=== PATIENT | female | born 1995 | race Caucasian/White ===

== ENCOUNTER → 2018-11-11 11:07 | Outpatient (CLI) | payer BC, MEDICAID, SELFPAY ==
[2018-11-11 10:55] VITALS: BMI 29.2
[2018-11-11 11:39] LABS: Absolute Lymphocyte Count 3.04 X10^3/ul (0.83-4.51); Absolute Neutrophil Count 5.8 X10^3/uL (2.0-7.7); Basophil# 0.04 X10^3/uL; Basophil% 0.4 % (0-1); Eosinophil# 0.11 X10^3/uL; Eosinophils% 1.1 % (0-5); Hematocrit 40.8 % (37-47); Hemoglobin 13.4 g/dl (12.0-15.0); Lymphocyte # 3.04 X10^3/ul (4.0); Lymphocyte % 31.1 % (19-41); Mean Corp Hgb Conc 32.8 g/gl (32-36); Mean Corpuscular Hgb 27.4 pg (27.0-32.0); Mean Corpuscular Volume 83.4 fL (81-99); Mean Platelet Vol. 10.2 fl (6.2-12.0); Monocyte# 0.82 X10^3/uL; Monocyte% 8.4 % (0-10); Neutrophil # 5.75 X10^3/uL (2.7-7.7); Neutrophil % 58.8 % (47-70); POSITIVE COUNT NO; POSITIVE DIFFERENTIAL NO; POSITIVE MORPHOLOGY NO; Platelet Count 360 K/mm3 (150-450); RBC Distribution Width CV 13.6 % (11.6-14.6); RBC Distribution Width SD 41.6 fl (35.1-43.9); Red Blood Count 4.89 M/mm3 (4.2-5.4); White Blood Count 9.8 K/mm3 (4.4-11.0)
[2018-11-11 12:05] LABS: Prolactin 6.6 ng/mL; Thyroid Stim Hormone (TSH) 1.94 uIU/mL (0.358-3.74)
[2018-11-12 20:06] LABS: DHEA Sulfate 420.3 ug/dL (110.0-431.7)
[2018-11-13 11:23] LABS: Testosterone Free 3.9 pg/mL (0.0-4.2)
== END ==
PROVIDERS: Referring Provider Nurse Practitioner Women's Health; Visit Provider Nurse Practitioner Women's Health
DX: N92.6 Irregular menstruation, unspecified (principal)
CPT/HCPCS: 36415; 82627; 84146; 84402; 84443; 85025; 82626

== ENCOUNTER 2021-06-20 11:22 | Outpatient (CLI) | payer MEDICAID, SELFPAY ==
[2021-06-21 21:07] LABS: Chlamydia By Nucleic Acid AMP Negative (Negative)
[2021-06-21 21:15] LABS: Gonococcus By Nucleic Acid AMP Negative (Negative)
[2021-06-23 14:35] LABS: HPV Reflexed? NOT INDICATED
== END 2021-06-20 23:59 | disposition short-term general hospital (02) ==
LOC: LABSPEC 11:23
PROVIDERS: Referring Provider Nurse Practitioner Women's Health; Visit Provider Nurse Practitioner Women's Health
DX: Z12.4 Encounter for screening for malignant neoplasm of cervix (principal); Z11.3 Encounter for screening for infections with a predominantly sexual mode of transmission
CPT/HCPCS: 87491; 87591; 88175; G0145

== ENCOUNTER 2021-07-05 14:08 | Outpatient (CLI) | payer MEDICAID, SELFPAY ==
--- NOTE | 2021-07-05 14:15 | US_ITS ---
STUDY: ULTRASOUND OF THE FEMALE PELVIS - COMPLETE REASON FOR EXAM: Female, 26 years old. Abnormal uterine bleeding -- wet read LMP: 06/21/2021. TECHNIQUE: Transabdominal and Transvaginal TECHNICAL QUALITY: Adequate. COMPARISON: None. FINDINGS: The uterus is anteverted and is in a midline position. The uterus measures 9.6 cm x 5.8 cm x 4.2 cm. Normal uterine cervix. The endometrium measures 3 mm in thickness, and is hyperechoic. A small amount of fluid is seen within the endometrium. There is no demonstrated endometrial mass. The endometrium is hyperemic. There is no demonstrated myometrial mass. I.U.D. - The patient does not have an I.U.D. The right ovary is visualized. The right ovary measures 2.9 cm x 2.5 cm x 2.4 cm. There is no right ovarian cyst or ovarian mass. There is no visualized right adnexal mass or complex lesion. There is normal arterial and normal venous vascularity. The left ovary is visualized. The left ovary measures 2.6 cm x 2.1 cm x 2.3 cm. There is no left ovarian cyst or ovarian mass. There is no visualized left adnexal mass or complex lesion. There is normal arterial and normal venous vascularity. There is no fluid in the cul-de-sac. The pre void volume of the bladder was 327 ml. US/Pelvic (Non ) IMPRESSION: Small amount of fluid is seen within the endometrium. The endometrium is hyperemic. Electronically Signed: Samir Chan MD at 15:29 EST ,
--- NOTE | 2021-07-05 14:15 | US_ITS ---
STUDY: ULTRASOUND OF THE FEMALE PELVIS - COMPLETE REASON FOR EXAM: Female, 26 years old. Abnormal uterine bleeding -- wet read LMP: 06/21/2021. TECHNIQUE: Transabdominal and Transvaginal TECHNICAL QUALITY: Adequate. COMPARISON: None. FINDINGS: The uterus is anteverted and is in a midline position. The uterus measures 9.6 cm x 5.8 cm x 4.2 cm. Normal uterine cervix. The endometrium measures 3 mm in thickness, and is hyperechoic. A small amount of fluid is seen within the endometrium. There is no demonstrated endometrial mass. The endometrium is hyperemic. There is no demonstrated myometrial mass. I.U.D. - The patient does not have an I.U.D. The right ovary is visualized. The right ovary measures 2.9 cm x 2.5 cm x 2.4 cm. There is no right ovarian cyst or ovarian mass. There is no visualized right adnexal mass or complex lesion. There is normal arterial and normal venous vascularity. The left ovary is visualized. The left ovary measures 2.6 cm x 2.1 cm x 2.3 cm. There is no left ovarian cyst or ovarian mass. There is no visualized left adnexal mass or complex lesion. There is normal arterial and normal venous vascularity. There is no fluid in the cul-de-sac. The pre void volume of the bladder was 327 ml. US/Transvaginal Non- IMPRESSION: Small amount of fluid is seen within the endometrium. The endometrium is hyperemic. Electronically Signed: Samir Chan MD at 15:29 EST ,
== END 2021-07-05 23:59 | disposition home or self-care (01) ==
LOC: US 14:13
PROVIDERS: Referring Provider Nurse Practitioner Women's Health; Visit Provider Nurse Practitioner Women's Health
DX: N92.1 Excessive and frequent menstruation with irregular cycle (principal)
CPT/HCPCS: 76830; 76856

== ENCOUNTER → 2022-02-13 | Outpatient (CLI) | payer MEDICAID, SELFPAY ==
[2022-02-13 14:22] LABS: Absolute Lymphocyte Count 2.53 X10^3/uL (0.83-4.51); Absolute Neutrophil Count 5.7 X10^3/uL (2.0-7.7); Basophil# 0.03 X10^3/uL; Basophil% 0.3 % (0-1); Eosinophil# 0.09 X10^3/uL; Hematocrit 40.6 % (37-47); Hemoglobin 13.5 g/dL (12.0-15.0); Lymphocyte # 2.53 X10^3/ul (0.83-4.51); Mean Corp Hgb Conc 33.3 g/dL (32-36); Mean Corpuscular Hgb 29.2 pg (27.0-32.0); Mean Corpuscular Volume 87.9 fL (81-99); Monocyte# 0.71 X10^3/uL; Monocyte% 7.8 % (0-10); NRBC Flagged by Analyzer 0 % (0-5); Neutrophil # 5.65 X10^3/uL (2.7-7.7); Neutrophil % 62.5 % (47-70); Platelet Count 314 K/mm3 (150-450); RBC Distribution Width CV 13.1 % (11.6-14.6); RBC Distribution Width SD 41.6 fl (35.1-43.9); Red Blood Count 4.62 M/mm3 (4.2-5.4); White Blood Count 9.1 K/mm3 (4.4-11.0)
[2022-02-13 15:09] LABS: Estradiol 143.6 pg/mL; Follicle Stimulating Hormone 3.4 mIU/mL; Prolactin 12.3 ng/mL; T4 Free Direct 1.08 ng/dL (0.76-1.46); Thyroid Stim Hormone (TSH) 1.33 uIU/mL (0.358-3.74)
== END | disposition home or self-care (01) ==
PROVIDERS: Referring Provider Nurse Practitioner Women's Health; Visit Provider Nurse Practitioner Women's Health
DX: N89.8 Other specified noninflammatory disorders of vagina (principal); N93.9 Abnormal uterine and vaginal bleeding, unspecified; N63.10 Unspecified lump in the right breast, unspecified quadrant; Z13.29 Encounter for screening for other suspected endocrine disorder; N92.1 Excessive and frequent menstruation with irregular cycle; R53.83 Other fatigue
CPT/HCPCS: 36415; 82670; 83001; 84146; 84439; 84443; 85025; 87070; 87205

== ENCOUNTER → 2023-06-04 | Outpatient (CLI) | payer MEDICAID, SELFPAY ==
--- OUTSIDE RECORDS SUMMARY | 2023-06-04 08:47 | XMS RPT_ITS | CCD ---
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 Name Role Phone ALMA MTZVICENTE ETIENNEE Unavailable Unavai tristin Bowers, Connoquenessing L Unavailable Unavailable Bowers, Connoquenessing L Unavailable Unavailable Bowers, Connoquenessing L Unavailable Unavailable Bowers, Connoquenessing L Unavailable Unavailable No, Physician Primary Care Provider Unavailabl e NO, PHYSICIAN Primary Care Unavailable GEETHA CARRANZA Attending Unavail able Unavailable Primary Care Provider Unavailabl e Mihir DRAPER, [facility] Primary Care Provide r MANASA SAMUELS Attending Unavailable NO, PHYSICIAN Primary Care Unavailable JOSHUA HOOKER Attending Unavailable AMIRNENI, VATNEE ILIA Primary Care Unavail able AMIRNENI, [facility] Primary Care Unavail able AMIVIKTORIA MENDEZTNGUZMAN MORILLO Attending Unavail able AMIRPAIGE, [facility] Attending Unavail able AMIRNENI, [facility] Primary Care Unavail able JAMILA DURAN Attending Unavailable AMIRPAIGE, [facility] Primary Care Unavail able Allergies Allergy Classification Reported Allergen(s) Allergy Type Date of Onset Reaction(s) Facility Opioid Agonists (2 sources) Codeine; Translations: [CODEINE] Drug Allergy 7 [facility] (1 source) Codeine And Related Propensity to adverse reactions to drug [address] [place] [address] (3 sources) Codeine; Translations: [CODEINE] Drug Allergy 7 Rash [facility] Medications Current Medications Medication Drug Class(es) Dates Sig (Normalized) Sig (Original) medroxyPROGESTERone acetate 10 mg oral tablet (2 sources) Progestin Start: 7 take 1 tablet by mouth once daily medroxyPROGESTERone (PROVERA) 10 MG Tab Indications: Amenorrhea Take one tablet by mouth daily for 10 days. 10 tablet 0 09/06/2016 Active pantoprazole 20 mg delayed release oral tablet (3 sources) Proton Pump Inhibitor Start: 3 take 1 tablet by mouth once daily pantoprazole (PROTONIX) 20 MG tablet Take 1 (one) tablet (20 mg total) by mouth daily . 90 tablet 3 05/24/2023 Active Completed/Discontinued Medications Medication Drug Class(es) Dates Sig (Normalized) Sig (Original) benzonatate 100 mg oral capsule (2 sources) Non-narcotic Antitussive Start: 10-22-2020 End: 12-13-2022 benzonatate (Tessalon Perles) 100 MG capsule Indications: Cough , Upper respiratory tract infection, unspecified type Take one or two capsules every 8 hours as needed for cough. Do not chew. . 60 capsule 1 10/22/2020 12/13/2022 Discontinued esomeprazole 20 mg delayed release oral capsule (1 source) Proton Pump Inhibitor End: 12-13-2022 take 1 capsule by mouth once daily before breakfast esomeprazole (NEXIUM) 20 MG capsule Take 1 (one) capsule (20 mg total) by mouth every morning before breakfast . 0 12/13/2022 Discontinued Ethinyl Estradiol / norgestimate (2 sources) Progestin, Estrogen Start: 02-23-2016 End: 12-13-2022 take 1 tablet by mouth once daily norgestimate-ethin yl estradiol (ORTHO TRI-CYCLEN, 28,) 0.18/0.215/0.25 mg-35 mcg (28) per tablet Take 1 tablet by mouth daily. 0 02/23/2016 12/13/2022 Discontinued Problems Active Problems Problem Classification Problem Date Documented Date Episodic/Chronic Anxiety disorders (2 sources) Panic disorder [episodic paroxysmal anxiety]; Translations: [Panic disorder (episodic paroxysmal anxiety)] Onset: 04-27-2023 Chronic Esophageal disorders (4 sources) Gastroesophageal reflux disease without esophagitis; Translations: [Gastro-esophageal reflux disease without esophagitis] Onset: 05-24-2023 3 Chronic Fever of unknown origin (1 source) Fever; Translations: [Fever, unspecified] Episodic Headache; including migraine (2 sources) Headache; including migraine; Translations: [Headache, unspecified] Onset: 12-13-2022 Other female genital disorders (2 sources) Other specified abnormal uterine and vaginal bleeding; Translations: [Other specified abnormal uterine and vaginal bleeding] Onset: 12-25-2016 Chronic Other lower respiratory disease (1 source) Cough; Translations: [Cough] Episodic Other nervous system disorders (2 sources) Other chronic pain; Translations: [Other chronic pain] Onset: 12-13-2022 Chronic Other upper respiratory infections (1 source) Upper respiratory infection; Translations: [Acute upper respiratory infection, unspecified] Episodic Ovarian cyst (3 sources) Cyst of right ovary; Translations: [Unspecified ovarian cyst, right side] Onset: 02-07-2022 Episodic Residual codes; unclassified (1 source) Generalized aches and pains; Translations: [Pain, unspecified] Episodic Viral infection (2 sources) Disease caused by 2019-nCoV; Translations: [COVID-19] Onset: 05-24-2023 05-24-2023 Episodic Viral infection (2 sources) COVID-19; Translations: [COVID-19] Onset: 05-24-2023 Past or Other Problems Problem Classification Problem Date Documented Date Episodic/Chronic Abdominal pain (6 sources) Epigastric pain; Translations: [Epigastric pain] Onset: 12-11-2022 12-13-2022 Episodic Headache; including migraine (4 sources) Acute headache; Translations: [Acute nonintractable headache, unspecified headache type] Onset: 12-13-2022 Episodic Nausea and vomiting (4 sources) Nausea and vomiting; Translations: [Nausea with vomiting, unspecified] Onset: 12-13-2022 12-13-2022 Episodic Other female genital disorders (3 sources) Abnormal uterine bleeding; Translations: [Other specified abnormal uterine and vaginal bleeding] Onset: 03-12-2017 Resolved: 12-13-2022 03-12-2017 Chronic Other female genital disorders (1 source) Vaginal discharge; Translations: [Other specified noninflammatory disorders of vagina] Onset: 03-12-2017 03-12-2017 Episodic Other and delivery including normal (10 sources) Patient encounter status; Translations: [Encounter for full-term uncomplicated delivery] Onset: 03-12-2017 Resolved: 12-13-2022 03-12-2017 Episodic Residual codes; unclassified (3 sources) First trimester ; Translations: [Less than 8 weeks gestation of ] Onset: 03-12-2017 Resolved: 12-13-2022 03-12-2017 Episodic Residual codes; unclassified (3 sources) Gestation period, 15 weeks; Translations: [15 weeks gestation of ] Onset: 03-12-2017 Resolved: 12-13-2022 03-12-2017 Episodic Residual codes; unclassified (3 sources) Gestation period, 16 weeks; Translations: [16 weeks gestation of ] Onset: 03-12-2017 Resolved: 12-13-2022 03-12-2017 Episodic Residual codes; unclassified (3 sources) Gestation period, 11 weeks; Translations: [11 weeks gestation of ] Onset: 03-12-2017 Resolved: 12-13-2022 03-12-2017 Episodic Residual codes; unclassified (3 sources) Gestation period, 28 weeks; Translations: [28 weeks gestation of ] Onset: 03-12-2017 Resolved: 12-13-2022 03-12-2017 Episodic Residual codes; unclassified (3 sources) Gestation period, 26 weeks; Translations: [26 weeks gestation of ] Onset: 03-12-2017 Resolved: 12-13-2022 03-12-2017 Episodic Residual codes; unclassified (3 sources) Gestation period, 24 weeks; Translations: [24 weeks gestation of ] Onset: 03-12-2017 Resolved: 12-13-2022 03-12-2017 Episodic Residual codes; unclassified (3 sources) Gestation period, 20 weeks; Translations: [20 weeks gestation of ] Onset: 03-12-2017 Resolved: 12-13-2022 03-12-2017 Episodic Residual codes; unclassified (3 sources) Gestation period, 39 weeks; Translations: [39 weeks gestation of ] Onset: 03-12-2017 Resolved: 12-13-2022 03-12-2017 Episodic Residual codes; unclassified (3 sources) Gestation period, 38 weeks; Translations: [38 weeks gestation of ] Onset: 03-12-2017 Resolved: 12-13-2022 03-12-2017 Episodic Residual codes; unclassified (3 sources) Gestation period, 37 weeks; Translations: [37 weeks gestation of ] Onset: 03-12-2017 Resolved: 12-13-2022 03-12-2017 Episodic Residual codes; unclassified (3 sources) Gestation period, 36 weeks; Translations: [36 weeks gestation of ] Onset: 03-12-2017 Resolved: 12-13-2022 03-12-2017 Episodic Residual codes; unclassified (3 sources) Gestation period, 34 weeks; Translations: [34 weeks gestation of ] Onset: 03-12-2017 Resolved: 12-13-2022 03-12-2017 Episodic Residual codes; unclassified (3 sources) Gestation period, 32 weeks; Translations: [32 weeks gestation of ] Onset: 03-12-2017 Resolved: 12-13-2022 03-12-2017 Episodic Residual codes; unclassified (3 sources) Gestation period, 30 weeks; Translations: [30 weeks gestation of ] Onset: 03-12-2017 Resolved: 12-13-2022 03-12-2017 Episodic Residual codes; unclassified (3 sources) Gestation period, 40 weeks; Translations: [40 weeks gestation of ] Onset: 03-12-2017 Resolved: 12-13-2022 03-12-2017 Episodic Results Test Name Value Interpretation Reference Range Facil it Vital Signs Date Time Vital Sign Value Performing Clinician [facility] 05-24-2023 11:04-0500 Body height 171.5 cm Rudi Ash MD Work Phone: [facility] 05-24-2023 11:04-0500 Body mass index (BMI) [Ratio] 38.79 kg/m2 Rudi Ash MD Work Phone: [facility] 05-24-2023 11:04-0500 Body temperature 98.1 [degF] Rudi Ash MD Work Phone: [facility] 05-24-2023 11:04-0500 Body weight 114.03 kg Rudi Ash MD Work Phone: [facility] 05-24-2023 11:04-0500 Diastolic blood pressure 72 mm[Hg] Rudi Ash MD Work Phone: [facility] 05-24-2023 11:04-0500 Heart rate 84 /min Rudi Ash MD Work Phone: [facility] 05-24-2023 11:04-0500 Respiratory rate 14 /min Rudi Ash MD Work Phone: [facility] 05-24-2023 11:04-0500 SaO2% (BldA) [Mass fraction] 97 % Rudi Ash MD Work Phone: [facility] 05-24-2023 11:04-0500 Systolic blood pressure 110 mm[Hg] Rudi Ash MD Work Phone: [facility] 12-13-2022 14:39-0400 Body height 171.5 cm Rudi Ash MD Work Phone: [facility] 12-13-2022 14:39-0400 Body mass index (BMI) [Ratio] 40.68 kg/m2 Rudi Ash MD Work Phone: [facility] 12-13-2022 14:39-0400 Body temperature 98.71 [degF] Rudi Ash MD Work Phone: [facility] 12-13-2022 14:39-0400 Body weight 119.57 kg Rudi Ash MD Work Phone: [facility] 12-13-2022 14:39-0400 Diastolic blood pressure 83 mm[Hg] Rudi Ash MD Work Phone: [facility] 12-13-2022 14:39-0400 Heart rate 78 /min Rudi Ash MD Work Phone: [facility] 12-13-2022 14:39-0400 Respiratory rate 18 /min Rudi Ash MD Work Phone: [facility] 12-13-2022 14:39-0400 SaO2% (BldA) [Mass fraction] 96 % Rudi Ash MD Work Phone: [facility] 12-13-2022 14:39-0400 Systolic blood pressure 124 mm[Hg] Rudi Ash MD Work Phone: [facility] 02-07-2022 14:01-0400 Diastolic blood pressure 71 mm[Hg] [facility] 02-07-2022 14:01-0400 Heart rate 70 /min [facility] [employer] [facility] 02-07-2022 14:01-0400 Respiratory rate 18 /min [facility] [employer] [facility] 02-07-2022 14:01-0400 SaO2% (BldA) [Mass fraction] 98 % [facility] 02-07-2022 14:01-0400 Systolic blood pressure 130 mm[Hg] [facility] 02-07-2022 10:51-0400 Body temperature 97.59 [degF] [facility] [employer] [facility] 10-22-2020 10:51-0400 Body height 172.7 cm Geetha Carranza [employer] OFFICER Work Phone: [facility] 10-22-2020 10:51-0400 Body mass index (BMI) [Ratio] 33.45 kg/m2 Geetha Carranza [employer]OT[employer]OL OFFICER Work Phone: [facility] 10-22-2020 10:51-0400 Body temperature 98.4 [degF] Geetha Carranza [employer]OTOCOL OFFICER Work Phone: [facility] 10-22-2020 10:51-0400 Body weight 99.79 kg Geetha Carranza [employer]OT[employer]OL OFFICER Work Phone: [facility] 10-22-2020 10:51-0400 Diastolic blood pressure 77 mm[Hg] Geetha Carranza [employer]OTOCOL OFFICER Work Phone: [facility] 10-22-2020 10:51-0400 Heart rate 98 /min Geetha Carranza [employer]OT[employer]OL OFFICER Work Phone: [facility] 10-22-2020 10:51-0400 Respiratory rate 18 /min Geetha Carranza [employer]OTOCOL OFFICER Work Phone: [facility] 10-22-2020 10:51-0400 SaO2% (BldA) [Mass fraction] 97 % Geetha Carranza [employer]OTOCOL OFFICER Work Phone: [facility] 10-22-2020 [id number] Systolic blood pressure 119 mm[Hg] Geetha Carranza CNP Work Phone: [facility] Encounters Encounter Date Encounter Type Care Provider Facility Start: 05-25-2023 ambulatory JAMILA DURAN [facility] Ambulatory Start: 05-24-2023 End: 05-24-2023 ambulatory RUDI ASH [facility] Ambulatory Start: 05-24-2023 End: 05-24-2023 Office outpatient visit 25 minutes Rudi Ash MD Work Phone: [facility] Procedures Date Procedure Procedure Detail Performing Clinician Start: 05-24-2023 Adult depression scr eening assessment Rudi Ash MD Work Phone: Start: 02-07-2022 KINDRA PREP Kayla Plummer Judson l PA-C Work Phone: Start: 02-07-2022 Smr prim src wet aarti nt nfct agt Kayla Warner PA-C Work Phone: Start: 02-07-2022 Us transvaginal Kayla Warner PA-C Work Phone: Start: 02-07-2022 Gonadotropin chorion ic qualitative Kaylalauren Warner PA-C Work Phone: Start: 02-07-2022 Urinalysis, reagent strip without microscopy Kayla Elian Warner PA-C Work Phone: Start: 10-22-2020 COVID-19/INFLUENZA O RDER ALGORITHM Geetha Carranza [employer]OL OFFICER Work Phone: Start: 10-22-2020 Sars-cov-2 detection by dna/rna Geetha Carranza [employer] OFFICER Work Phone: Plan of Treatment Date Care Activity Detail Author Start: 09-12-2027 Tetanus vaccination Tetanus: Every 1 0yrs [facility] Start: 05-27-2024 End: 05-27-2024 Patient encounter procedure 05/27/2024 8:00 AM EST Office Visit [facility] [address] [place] [phone] Rudi Ash MD [address] [place] [address] [facility] Start: 11-25-2023 Influenza vaccination Sequenti al Influenza Vaccine (#1) [facility] Immunizations Immunization Date Immunization Notes Care Provider Fa cility 09-11-2017 tetanus toxoid, redu toro diphtheria toxoid, and acellular pertussis vaccine, adsorbed Geetha Lanica [employer]OTOCOL OFFICER Work Phone: [facility] 01-07-2010 meningococcal polysa ccharide (groups A, C, Y and W-135) diphtheria toxoid conjugate vaccine (MCV4P) Geetha Lanica [employer]OTOCOL OFFICER Work Phone: [facility] 01-07-2010 tetanus toxoid, redu toro diphtheria toxoid, and acellular pertussis vaccine, adsorbed Geetha Lanica [employer]OTOCOL OFFICER Work Phone: [facility] 06-01-2000 diphtheria, tetanus toxoids and acellular pertussis vaccine, unspecified formulation Geetha Lanica [employer]OTOCOL OFFICER Work Phone: [facility] 06-01-2000 measles, mumps and r ubella virus vaccine Geetha Lanica [employer] OFFICER Work Phone: [facility] 06-01-2000 poliovirus vaccine, inactivated Geetha Conn [employer]OTOCOL OFFICER Work Phone: [facility] 06-01-2000 varicella virus vaccine Patr icia Conn PROTOCOL OFFICER Work Phone: [facility] 01-19-1997 varicella virus vaccine Patr icia Conn PROTOCOL OFFICER Work Phone: [facility] 12-01-1996 measles, mumps and r ubella virus vaccine Geetha Lanica [employer]OTOCOL OFFICER Work Phone: [facility] 12-01-1996 poliovirus vaccine, inactivated Geetha Conn [employer]OTOCOL OFFICER Work Phone: [facility] 1995 diphtheria, tetanus toxoids and acellular pertussis vaccine, unspecified formulation Geetha Lanica [employer]OTOCOL OFFICER Work Phone: [facility] 1995 haemophilus influenz ae type b conjugate and Hepatitis B vaccine Geetha Conn [employer]OTOCOL OFFICER Work Phone: [facility] 1995 poliovirus vaccine, inactivated Geetha Conn [employer]OTOCOL OFFICER Work Phone: [facility] 1995 diphtheria, tetanus toxoids and acellular pertussis vaccine, unspecified formulation Geetha Conn PROTOCOL OFFICER Work Phone: [facility] 1995 haemophilus influenz ae type b vaccine, PRP-T conjugate Geetha Conn PROTOCOL OFFICER Work Phone: [facility] 1995 poliovirus vaccine, inactivated Geetha Conn PROTOCOL OFFICER Work Phone: [facility] 1995 diphtheria, tetanus toxoids and acellular pertussis vaccine, unspecified formulation Geetha Conn PROTOCOL OFFICER Work Phone: [facility] 1995 haemophilus influenz ae type b vaccine, PRP-T conjugate Geetha Conn PROTOCOL OFFICER Work Phone: [facility] 1995 poliovirus vaccine, inactivated Geetha Conn PROTOCOL OFFICER Work Phone: [facility] 1995 hepatitis B vaccine, pediatric or pediatric/adolescent dosage Geetha Conn [employer]OTOCOL OFFICER Work Phone: [facility] 1995 hepatitis B vaccine, pediatric or pediatric/adolescent dosage Geetha Conn [employer]OTOCOL OFFICER Work Phone: [facility] Payers Date Payer Category Payer Unknown [facility] [id number] 2022-Present [address] [place] [address] [id number] 2018 [facility] [employer] [id number] 2018-Present [id number] 2018 Medicaid [id number] 2018 Medicaid [facility] [employer] [id number] 2018-Present [phone] [address] [place] [address] [id number] 2018 Medicaid [id number] 2017 [facility] ARO12 [id number] 2014 Medicaid [id number] 1995 Unknown [id number] 1995 Unknown [id number] 1995 Unknown [id number] 1995 Unknown [id number] 1995 Unknown [id number] 1995 Unknown [id number] 1995 Unknown [id number] Social History Date Type Detail Facility Start: 03-30-2017 End: 10-22-2020 Tobacco smoking status [facility] Never smoker [facility] Start: 10-22-2020 End: 12-13-2022 Tobacco use and exposure Never used [facility] Start: 10-22-2020 End: 05-24-2023 Alcohol intake Current drinker of alcohol (finding) [facility] Start: 10-22-2020 Alcohol Comment occasionally [facility] Start: 1995 Sex Assigned At Not on file [facility] Start: 01-28-2022 End: 02-07-2022 Exposure to SARS-CoV-2 (event) Not sure [facility] Start: 02-07-2022 History SDOH Alcohol Comment [facility] Start: 12-13-2022 Tobacco smoking stat us NHIS Ex-smoker [facility] History of tobacco use Current smoker [facility] History of tobacco use Cigarette Smoker [facility] Start: 12-11-2022 End: 04-27-2023 History of Social function [facility] Start: 12-11-2022 End: 04-27-2023 Tobacco use panel [facility] Start: 10-22-2020 Gender identity Identifies as female gender (finding) [facility] Start: 12-11-2022 Sexual orientation Homosexual (findi ng) [facility] History of Present illness Narrative 05-24-2023 Rudi Ash MD - 05/24/2023 11:09 AM EST Note Date & Type Note Facility 05-24-2023 History of Presen t illness Narrative Images from the original note were not included. Karoline Bae 1995 [id number] HPI: Patient was here today complaining of COVID infection and needing forms to be completed to return back to work, and also to follow-up on her chronic symptoms of upper abdominal pain, nausea/vomiting etc. Patient stated today that she started having significant symptoms of sore throat, nasal and sinus congestion, cough, significant fatigue, fever and chills etc. around May 13 when she tested positive for COVID infection. States that she has received the first 2 shots of COVID vaccinations but has not received any boosters. She has had the symptoms for 5 to 6 days and then resolved. She feels almost back to normal now. But needs forms to be completed to return back to work, but she did not bring in her forms to the office visit today. When I inquired about her previous symptoms of nausea/vomiting and epigastric abdominal pain, patient stated that her symptoms have significantly improved and almost resolved after she started taking Protonix. But she still has intermittent symptoms of heartburn and nausea maybe once a week and has been taking Protonix as needed with good relief of the symptoms. Patient did not do the HIDA scan because she had to go to another place to get the test done and she could not afford that. Patient Active Problem List Diagnosis Chronic headache disorder GERD without esophagitis COVID-19 virus infection Past Medical History: Diagnosis Date Anemia 2009 DUB (dysfunctional uterine bleeding) 03/12/2017 GERD without esophagitis 05/24/2023 Gestational diabetes Past Surgical History: Procedure Laterality Date APPENDECTOMY TONSILLECTOMY Social History Socioeconomic History Marital status: Tobacco Use Smoking status: Former Types: Cigarettes Smokeless tobacco: Never Vaping Use Vaping Use: Never used Substance and Sexual Activity Alcohol use: Yes Comment: occasionally Drug use: Yes Types: Marijuana Comment: OCC Sexual activity: Yes Partners: Female control/protection: None Family History Problem Relation Age of Onset Breast cancer Mother Other (prediabetes) Mother Diabetes Maternal Grandmother Lung cancer Maternal Grandfather Review of Systems Constitutional: Negative for chills, diaphoresis, fatigue, fever and unexpected weight change. Respiratory: Negative for cough, shortness of breath and wheezing. Cardiovascular: Negative for chest pain, palpitations and leg swelling. Gastrointestinal: Negative for abdominal distention, abdominal pain, blood in stool, constipation, diarrhea, nausea and vomiting. Neurological: Negative for dizziness and light-headedness. Physical Exam: Vitals: 05/24/23 1104 BP: 110/72 BP Location: Right arm Patient Position: Sitting BP Cuff Size: Adult Pulse: 84 Resp: 14 Temp: 98.1 F (36.7 C) TempSrc: Infrared SpO2: 97% Weight: 114 kg (251 lb 6.4 oz) Height: 5' 7.5 Physical Exam Constitutional: General: She is not in acute distress. Appearance: She is obese. Cardiovascular: Rate and Rhythm: Normal rate and regular rhythm. Heart sounds: Normal heart sounds. No murmur heard. Pulmonary: Effort: Pulmonary effort is normal. No respiratory distress. Breath sounds: Normal breath sounds. No wheezing or rales. Abdominal: General: There is no distension. Palpations: Abdomen is soft. Tenderness: There is no abdominal tenderness. Assessment & Plan: 1. COVID-19 virus infection 2. GERD without esophagitis COVID infection: Symptoms seem to have significantly improved and almost resolved now. She needs forms completed to return back to work. I have advised her to drop off the forms at the office or send them through the [employer] so that we can complete them and fax it back. She agreed to do that. Nausea/vomiting and epigastric abdominal pain: Possibly secondary to GERD. Symptoms seem to have significantly improved with Protonix. Will continue same medication at a lower dose. Prescription was refilled today. Return if symptoms worsen or fail to improve. Patient education & instructions given for: Advised patient about possible common adverse-effects from the medications, but also recommended to review the medication information package inserts for complete list of adverse effects/contraindications, drug interactions etc., before starting any new medication. Patient was also advised to immediately discontinue the medication and notify us or go to a nearby ER if experiencing any severe adverse affects from the medications. All the addressed problems were discussed with the patient and advice given to call with any concerns or return to the office or go to a nearby ER if the symptoms do not improve or worsen or new symptoms develop. If any referrals were placed or tests ordered at today's visit, the patient was instructed to call the office if they are not notified about the scheduling of referral or tests, within 2 weeks of today's visit. Health maintenance/preventive screening reviewed / ordered: Offered age-appropriate preventive services and screening. 05/24/2023 11:06 AM Depression Screening Little interest or pleasure in doing things 0 Feeling down, depressed, or hopeless 0 PHQ-2 Total Score 0 Trouble falling or staying asleep, or sleeping too much 0 Feeling tired or having little energy 0 Poor appetite or overeating 0 Feeling bad about yourself - or that you are a failure or have let yourself or your family down 0 Trouble concentrating on things, such as reading the newspaper or watching television 0 Moving or speaking so slowly that other people could have noticed. Or the opposite - being so fidgety or restless that you have been moving around a lot more than usual 0 Thoughts that you would be better off , or of hurting yourself in some way 0 PHQ-9 Total Score 0 If you checked off any problems, how difficult have these problems made it for you to do your work, take care of things at home, or get along with other people? Not difficult at all Please note: Portions of this chart may have been created with SocialEars voice recognition software. Occasional wrong-word or sound-like substitutions may have occurred due to inherent limitations of the voice recognition software. Please read the chart carefully and recognize, using context, where the substitutions have occurred. documented in this encounter [facility] History of Present illness Narrative 12-13-2022 Rudi Ash MD - 12/13/2022 6:30 PM EDT Note Date & Type Note Facility 12-13-2022 History of Presen t illness Narrative Images from the original note were not included. [facility] 1995 [id number] HPI: Patient was here today to establish primary medical care with me and to follow-up from her recent ER visit with symptoms of upper abdominal pain, nausea and vomiting. Patient stated that she started having symptoms of moderate intermittent aching pain in the upper abdomen associate with nausea and vomiting almost 3 weeks ago. The pain symptoms have gotten progressively worse and hence she recently went to the hospital ER on . She has undergone lab tests including amylase level which were fairly normal. She had a CT of the abdomen and pelvis which was reported as:Surgical suture near the cecum is probably from prior appendectomy. Remaining visceral organs of the abdomen and pelvis appear normal as seen. There is no free intraperitoneal air or fluid and no adenopathy. Great vessels display a normal course and caliber. Lung bases are clear and osseous structures are unremarkable. IMPRESSION: No CT evidence of an acute intraabdominal process. Patient stated that she was advised by the ER provider to have a HIDA scan as an outpatient and was discharged home on Zofran for as needed use. She still continues to have upper abdominal pain, intermittent symptoms of nausea and vomiting. No blood in the stool, no black-colored stools. She has some constipation but no diarrhea. No blood in the vomitus. When I inquired about NSAID use, patient states that she has been taking ibuprofen almost 3 times a week for her chronic headaches. She also has chronic history of acid reflux with heartburn and hence has been taking OTC Nexium 20 mg every day. She never had any EGD done so far. Patient Active Problem List Diagnosis Nausea and vomiting Epigastric abdominal pain Chronic headache disorder Past Medical History: Diagnosis Date Anemia 2009 DUB (dysfunctional uterine bleeding) 03/12/2017 Gestational diabetes Past Surgical History: Procedure Laterality Date APPENDECTOMY TONSILLECTOMY Social History Socioeconomic History Marital status: Tobacco Use Smoking status: Former Types: Cigarettes Smokeless tobacco: Never Vaping Use Vaping Use: Never used Substance and Sexual Activity Alcohol use: Yes Comment: occasionally Drug use: Yes Types: Marijuana Comment: OCC Sexual activity: Yes Partners: Female control/protection: None Family History Problem Relation Age of Onset Breast cancer Mother Other (prediabetes) Mother Diabetes Maternal Grandmother Lung cancer Maternal Grandfather Review of Systems Constitutional: Positive for fatigue. Negative for chills, diaphoresis, fever and unexpected weight change. HENT: Negative for sinus pressure and sinus pain. Respiratory: Negative for cough, shortness of breath and wheezing. Cardiovascular: Negative for chest pain, palpitations and leg swelling. Gastrointestinal: Negative for abdominal distention and blood in stool. Neurological: Negative for dizziness, light-headedness and numbness. Physical Exam: Vitals: 12/13/22 1439 BP: 124/83 BP Location: Right arm Patient Position: Sitting BP Cuff Size: X-large Adult Pulse: 78 Resp: 18 Temp: 98.7 F (37.1 C) SpO2: 96% Weight: 119.6 kg (263 lb 9.6 oz) Height: 5' 7.5 Physical Exam Constitutional: General: She is not in acute distress. Appearance: She is obese. Cardiovascular: Rate and Rhythm: Normal rate and regular rhythm. Pulses: Normal pulses. Heart sounds: Normal heart sounds. No murmur heard. Pulmonary: Effort: Pulmonary effort is normal. No respiratory distress. Breath sounds: Normal breath sounds. No wheezing or rales. Abdominal: General: Abdomen is flat. Bowel sounds are normal. There is no distension. Palpations: Abdomen is soft. There is no hepatomegaly. Tenderness: There is abdominal tenderness. There is no guarding or rebound. Comments: Mild epigastric tenderness Musculoskeletal: Right lower leg: No edema. Left lower leg: No edema. Neurological: General: No focal deficit present. Assessment & Plan: 1. Epigastric abdominal pain NM Hepatobiliary With Ejection Fraction 2. Nausea and vomiting, unspecified vomiting type NM Hepatobiliary With Ejection Fraction 3. Chronic nonintractable headache, unspecified headache type Epigastric abdominal pain, associated symptoms of nausea with vomiting: Possible gastritis, PUD, GERD or gallbladder pathology etc. Discussed various possible etiology. Recent labs and CT abdomen results from the ER visit were reviewed and discussed with her. She was prescribed Protonix 40 mg twice daily and advised to discontinue OTC Nexium. She was advised to completely avoid taking any NSAIDs or aspirin. If her symptoms do not improve with PPI use and after discontinuation of NSAIDs, will consider further evaluation with an EGD. Chronic headache: Not sure if chronic headaches are secondary to stress (patient states that she gets 4 to 6 hours of a night sleep), ?Rebound headache. ?Sinus headache or migraines. I have discussed various possible etiology for chronic headaches. Advised her not to take a pain medication for headache relief on a regular basis. She was advised to try OTC Tylenol and absolutely avoid any NSAID use at this time. I have discussed and offered further evaluation with a brain imaging study which patient deferred at this time. Return in about 1 month (around 01/13/2023), or if symptoms worsen or fail to improve. Patient education & instructions given for: Advised patient about possible common adverse-effects from the medications, but also recommended to review the medication information package inserts for complete list of adverse effects/contraindications, drug interactions etc., before starting any new medication. Patient was also advised to immediately discontinue the medication and notify us or go to a nearby ER if experiencing any severe adverse affects from the medications. All the addressed problems were discussed with the patient and advice given to call with any concerns or return to the office or go to a nearby ER if the symptoms do not improve or worsen or new symptoms develop. If any referrals were placed or tests ordered at today's visit, the patient was instructed to call the office if they are not notified about the scheduling of referral or tests, within 2 weeks of today's visit. Health maintenance/preventive screening reviewed / ordered: Offered age-appropriate preventive services and screening. Please note: Portions of this chart may have been created with SocialEars voice recognition software. Occasional wrong-word or sound-like substitutions may have occurred due to inherent limitations of the voice recognition software. Please read the chart carefully and recognize, using context, where the substitutions have occurred. documented in this encounter [facility] Discharge instructions 02-07-2022 Discharge InstructionsAttachments Note Date & Type Note Facility 02-07-2022 Hospital Discharg e instructions Kayla Warner PA-C - 02/07/2022 1:42 PM EDT If your pain gets worse or moves to the left side please return for reevaluation. The following attachments cannot be sent through Care Everywhere.Ovarian Cyst: Functional (Divehi)documented in this encounter [facility] Instructions 10-22-2020 Patient Instructions Note Date & Type Note Facility 10-22-2020 Instructions Geetha Carranza CNP - 10/22/2020 11:15 AM EDT Images from the original note were not included. Viral Respiratory Infection: Care Instructions Your Care Instructions Viruses are very small organisms. They grow in number after they enter your body. There are many types that cause different illnesses, such as colds and the mumps. The symptoms of a viral respiratory infection often start quickly. They include a fever, sore throat, and runny nose. You may also just not feel well. Or you may not want to eat much. Most viral respiratory infections are not serious. They usually get better with time and self-care. Antibiotics are not used to treat a viral infection. That's because antibiotics will not help cure a viral illness. In some cases, antiviral medicine can help your body fight a serious viral infection. Follow-up care is a wilson part of your treatment and safety. Be sure to make and go to all appointments, and call your doctor if you are having problems. It's also a good idea to know your test results and keep a list of the medicines you take. How can you care for yourself at home? Rest as much as possible until you feel better. Be safe with medicines. Take your medicine exactly as prescribed. Call your doctor if you think you are having a problem with your medicine. You will get more details on the specific medicine your doctor prescribes. Take an cddz-lcj-yvxgycl pain medicine, such as acetaminophen (Tylenol), ibuprofen (Advil, Motrin), or naproxen (Aleve), as needed for pain and fever. Read and follow all instructions on the label. Do not give aspirin to anyone younger than 20. It has been linked to Valeria syndrome, a serious illness. Drink plenty of fluids. Hot fluids, such as tea or soup, may help relieve congestion in your nose and throat. If you have kidney, heart, or liver disease and have to limit fluids, talk with your doctor before you increase the amount of fluids you drink. Try to clear mucus from your lungs by breathing deeply and coughing. Gargle with warm salt water once an hour. This can help reduce swelling and throat pain. Use 1 teaspoon of salt mixed in 1 cup of warm water. Do not smoke or allow others to smoke around you. If you need help quitting, talk to your doctor about stop-smoking programs and medicines. These can increase your chances of quitting for good. To avoid spreading the virus Cough or sneeze into a tissue. Then throw the tissue away. If you don't have a tissue, use your hand to cover your cough or sneeze. Then clean your hand. You can also cough into your sleeve. Wash your hands often. Use soap and warm water. Wash for 15 to 20 seconds each time. If you don't have soap and water near you, you can clean your hands with alcohol wipes or gel. When should you call for help? Call your doctor now or seek immediate medical care if: You have a new or higher fever. Your fever lasts more than 48 hours. You have trouble breathing. You have a fever with a stiff neck or a severe headache. You are sensitive to light. You feel very sleepy or confused. Watch closely for changes in your health, and be sure to contact your doctor if: You do not get better as expected. Where can you learn more? Log into your personal health record on https://easyfoliot.El[employer] and enter Q795 in the Education box to learn more about Viral Respiratory Infection: Care Instructions. Current as of: March 22, 2020 Content Version: 12.8 [employer]. Care instructions adapted under license by your healthcare professional. If you have questions about a medical condition or this instruction, always ask your healthcare professional. [employer] disclaims any warranty or liability for your use of this information. Thank you for choosing [facility] for your health care needs today. Follow up if no improvement in 3 to 5 days. documented in this encounter [facility] History of Present illness Narrative 10-22-2020 Geetha Carranza CNP - 10/22/2020 10:50 AM EDT Note Date & Type Note Facility 10-22-2020 History of Presen t illness Narrative Images from the original note were not included. ambrose Patient Name: [facility] Location: [facility] [address] [place] [id number] Date Of : Date Of Visit: 1995 10/22/2020 MRN# Provider: [id number] Geetha Carranza CNP Chief Complaint Patient presents with Covid-19 Screening Fever, runny nose, cough, body aches. Migraine x 1 week. Other symptoms since Sunday. Assessment & Plan 1. Fever, unspecified fever cause Covid-19/Influenza Order Algorithm 2. Acute nonintractable headache, unspecified headache type Covid-19/Influenza Order Algorithm 3. Body aches Covid-19/Influenza Order Algorithm 4. Cough Covid-19/Influenza Order Algorithm benzonatate (Tessalon Perles) 100 MG capsule 5. Upper respiratory tract infection, unspecified type fluticasone propionate (FLONASE) 50 mcg/actuation nasal spray benzonatate (Tessalon Perles) 100 MG capsule No follow-ups on file. Medical Decision Making Client is pleasant, non-toxic in no acute distress. URI symptoms began on Sunday. ALVAREZ resolved. Would like COVID screening. COVID - negative. Additional Clinical Comments Treated for symptomatic relief. Encouraged follow up no improvement in 3 to 5 days. See AVS. Subjective 25 y.o. female presents with Covid-19 Screening (Fever, runny nose, cough, body aches. Migraine x 1 week. Other symptoms since Sunday.) Fever, headache (week), body aches, runny nose and cough for 3 days. Not the worst ALVAREZ of her life. Client denies ALVAREZ/pain today in the clinic. Client has not taken any medication. Not or nursing. URI This is a new problem. The current episode started in the past 7 days. The problem has been gradually worsening. The maximum temperature recorded prior to her arrival was 101 - 101.9 F. The fever has been present for less than 1 day. Associated symptoms include congestion, coughing, headaches, nausea, rhinorrhea, a sore throat and vomiting. Pertinent negatives include no diarrhea or wheezing. She has tried nothing for the symptoms. Review Of Systems Review of Systems Constitutional: Positive for fever. Negative for chills. HENT: Positive for congestion, rhinorrhea and sore throat. No new loss of taste or smell. Respiratory: Positive for cough. Negative for shortness of breath and wheezing. Gastrointestinal: Positive for nausea and vomiting. Negative for diarrhea. Vomited once yesterday morning. Musculoskeletal: Positive for myalgias. Neurological: Positive for headaches. Medical History Past Medical History: Diagnosis Date Gestational diabetes Past Surgical History: Procedure Laterality Date APPENDECTOMY TONSILLECTOMY Patient Active Problem List Diagnosis Vaginal discharge DUB (dysfunctional uterine bleeding) Encounter for full-term uncomplicated delivery , supervision of first, second trimester , supervision of first, third trimester Supervision of normal first in first trimester Single live Encounter for routine follow-up Less than 8 weeks gestation of 15 weeks gestation of 16 weeks gestation of 11 weeks gestation of 28 weeks gestation of 26 weeks gestation of 24 weeks gestation of 20 weeks gestation of 39 weeks gestation of 38 weeks gestation of 37 weeks gestation of 36 weeks gestation of 34 weeks gestation of 32 weeks gestation of 30 weeks gestation of 40 weeks gestation of Social History Social History Tobacco Use Smoking status: Never Smoker Smokeless tobacco: Never Used Vaping Use Vaping Use: Never used Substance Use Topics Alcohol use: Yes Comment: occasionally Drug use: Never Family History History reviewed. No pertinent family history. Objective Physical Exam BP 119/77 (BP Location: Left arm, Patient Position: Sitting, BP Cuff Size: Adult) Pulse 98 Temp 98.4 F (36.9 C) (Infrared) Resp 18 Ht 5' 8 Wt 99.8 kg (220 lb) SpO2 97% BMI 33.45 kg/m Vision/Hearing Exam:No exam data present Physical Exam Vitals and nursing note reviewed. Constitutional: General: She is not in acute distress. Appearance: Normal appearance. She is not ill-appearing, toxic-appearing or diaphoretic. HENT: Head: Normocephalic and atraumatic. Right Ear: Tympanic membrane, ear canal and external ear normal. Left Ear: Tympanic membrane, ear canal and external ear normal. Nose: Congestion and rhinorrhea present. Mouth/Throat: Mouth: Mucous membranes are moist. Pharynx: Oropharynx is clear. No oropharyngeal exudate or posterior oropharyngeal erythema. Cardiovascular: Rate and Rhythm: Normal rate and regular rhythm. Heart sounds: Normal heart sounds. Pulmonary: Effort: Pulmonary effort is normal. Breath sounds: Normal breath sounds. Skin: General: Skin is warm and dry. Neurological: Mental Status: She is alert and oriented to person, place, and time. GCS: GCS eye subscore is 4. GCS verbal subscore is 5. GCS motor subscore is 6. Psychiatric: Mood and Affect: Mood normal. Behavior: Behavior normal. Procedure Notes Procedures Results Recent Results (from the past 168 hour(s)) COVID-19, Molecular Collection Time: 10/22/20 10:58 AM Specimen: Nasopharyngeal; Swab Result Value Ref Range SARS-CoV-2 Not Detected Not Detected No orders to display Orders Placed This Visit Orders Placed This Encounter Procedures Covid-19/Influenza Order Algorithm COVID-19, Molecular Medication List At End Of Visit Current Outpatient Medications Medication Sig Dispense Refill benzonatate (Tessalon Perles) 100 MG capsule Take one or two capsules every 8 hours as needed for cough. Do not chew. . 60 capsule 1 fluticasone propionate (FLONASE) 50 mcg/actuation nasal spray Instill 2 (two) sprays into each nostril daily . 16 g 0 norgestimate-ethinyl estradiol (ORTHO TRI-CYCLEN, 28,) 0.18/0.215/0.25 mg-35 mcg (28) per tablet Take 1 tablet by mouth daily. No current facility-administered medications for this visit. Patient Instructions Viral Respiratory Infection: Care Instructions Your Care Instructions Viruses are very small organisms. They grow in number after they enter your body. There are many types that cause different illnesses, such as colds and the mumps. The symptoms of a viral respiratory infection often start quickly. They include a fever, sore throat, and runny nose. You may also just not feel well. Or you may not want to eat much. Most viral respiratory infections are not serious. They usually get better with time and self-care. Antibiotics are not used to treat a viral infection. That's because antibiotics will not help cure a viral illness. In some cases, antiviral medicine can help your body fight a serious viral infection. Follow-up care is a wilson part of your treatment and safety. Be sure to make and go to all appointments, and call your doctor if you are having problems. It's also a good idea to know your test results and keep a list of the medicines you take. How can you care for yourself at home? Rest as much as possible until you feel better. Be safe with medicines. Take your medicine exactly as prescribed. Call your doctor if you think you are having a problem with your medicine. You will get more details on the specific medicine your doctor prescribes. Take an umzb-hnj-pafyech pain medicine, such as acetaminophen (Tylenol), ibuprofen (Advil, Motrin), or naproxen (Aleve), as needed for pain and fever. Read and follow all instructions on the label. Do not give aspirin to anyone younger than 20. It has been linked to Valeria syndrome, a serious illness. Drink plenty of fluids. Hot fluids, such as tea or soup, may help relieve congestion in your nose and throat. If you have kidney, heart, or liver disease and have to limit fluids, talk with your doctor before you increase the amount of fluids you drink. Try to clear mucus from your lungs by breathing deeply and coughing. Gargle with warm salt water once an hour. This can help reduce swelling and throat pain. Use 1 teaspoon of salt mixed in 1 cup of warm water. Do not smoke or allow others to smoke around you. If you need help quitting, talk to your doctor about stop-smoking programs and medicines. These can increase your chances of quitting for good. To avoid spreading the virus Cough or sneeze into a tissue. Then throw the tissue away. If you don't have a tissue, use your hand to cover your cough or sneeze. Then clean your hand. You can also cough into your sleeve. Wash your hands often. Use soap and warm water. Wash for 15 to 20 seconds each time. If you don't have soap and water near you, you can clean your hands with alcohol wipes or gel. When should you call for help? Call your doctor now or seek immediate medical care if: You have a new or higher fever. Your fever lasts more than 48 hours. You have trouble breathing. You have a fever with a stiff neck or a severe headache. You are sensitive to light. You feel very sleepy or confused. Watch closely for changes in your health, and be sure to contact your doctor if: You do not get better as expected. Where can you learn more? Log into your personal health record on https://[employer] The[employer] and enter Q795 in the Education box to learn more about Viral Respiratory Infection: Care Instructions. Current as of: March 22, 2020 Content Version: 12.8 [employer]. Care instructions adapted under license by your healthcare professional. If you have questions about a medical condition or this instruction, always ask your healthcare professional. [employer] disclaims any warranty or liability for your use of this information. Thank you for choosing [facility] for your health care needs today. Follow up if no improvement in 3 to 5 days. documented in this encounter [facility] Evaluation note Note Date & Type Note Facility documented in this encounter [facility] Evaluation note Note Date & Type Note Facility documented in this encounter [facility] Evaluation note Note Date & Type Note Facility documented in this encounter [facility] Evaluation note Note Date & Type Note Facility documented in this encounter [facility] Summary Purpose Family History No Family History Records FoundNo Family History Records FoundNo Family History Records FoundNo Family History Records FoundNo Family History Records FoundNo Family History Records FoundNo Family History Records Found Advance Directives No Advanced Directives Records FoundDocuments on File Type Date 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 and Living Will Reason for Referral Specialty Diagnoses / Procedures Referred By Contac t Referred To Contact Procedures US TRANSVAGINAL WITH DOPPLER US PELVIC W TRANSVAGINAL Kayla Warner PA-C [address] [place] [id number] Referral ID Status Reason Start Date Expiration Date Visits Re quested Visits Authorized [id number] Closed 02/07/2022 03/04/2023 1 1 Specialty Diagnoses / Procedures Referred By Contac t Referred To Contact Radiology Diagnoses Epigastric abdominal pain Nausea and vomiting, unspecified vomiting type Procedures NM Hepatobiliary With Ejection Fraction Rudi Ash MD [address] [place] [address] Referral ID Status Reason Start Date Expiration Date V isits Requested Visits Authorized [id number] New Request 12/14/2022 12/14/2023 4 4 Additional Source Comments INFORMATION SOURCE (unrecogn ized section and content) DATE CREATED AUTHOR AUTHOR'S ORGANIZ ATION 11/30/2017 [facility] DATE CREATED AUTHOR AUTHOR'S ORGANIZ ATION 10/25/2020 [facility] nt [facility] DATE CREATED AUTHOR AUTHOR'S ORGANIZ ATION 03/08/2022 [facility] DATE CREATED AUTHOR AUTHOR'S ORGANIZ ATION 01/05/2023 [facility] DATE CREATED AUTHOR AUTHOR'S ORGANIZ ATION 05/25/2023 [facility] DATE CREATED AUTHOR AUTHOR'S ORGANIZ ATION 05/26/2023 [facility] Amb[facility] l[facility] Reason for Visit (unrecogniz ed section and content) Reason Comments Pelvic Pain To ED with c/o ligh tening crotch since this morning. Patient states pain comes and goes. 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 This clinical summary was aggregated from multiple sources. Caution should be exercised in using it in the provision of clinical care. This summary normalizes information from multiple sources, and as a consequence, information in this document may materially change the coding, format and clinical context of patient data. In addition, data may be omitted in some cases. CLINICAL DECISIONS SHOULD BE BASED ON THE PRIMARY CLINICAL RECORDS. [employer] provides no warranty or guarantee of the accuracy or completeness of information in this document.
[2023-06-04 09:27] LABS: Thyroid Stim Hormone (TSH) 2.43 uIU/mL (0.358-3.74)
== END | disposition home or self-care (01) ==
PROVIDERS: Referring Provider Nurse Practitioner Women's Health; Visit Provider Nurse Practitioner Women's Health
DX: N91.4 Secondary oligomenorrhea (principal)
CPT/HCPCS: 36415; 84443

== ENCOUNTER → 2023-06-22 | Outpatient (CLI) | payer MEDICAID, SELFPAY ==
--- OUTSIDE RECORDS SUMMARY | 2023-06-22 09:33 | XMS RPT_ITS | CCD ---
Author Name Unknown Address [address] [place] [address] Organization [facility] Care Team Providers Care Financial Sales Advisor Name Role Phone ALMA MTZVICENTE ETIENNEE Unavailable Unavai tristin Bowers, [place] L Unavailable Unavailable Bowers, [place] L Unavailable Unavailable Bowers, [place] L Unavailable Unavailable Bowers, [place] L Unavailable Unavailable No, Physician Primary Care Provider Unavailabl e NO, PHYSICIAN Primary Care Unavailable GEETHA CARRAZNA Attending Unavail able Unavailable Primary Care Provider Unavailabl e Mihir DRAPER, [facility] Primary Care Provide r MANASA SAMUELS Attending Unavailable NO, PHYSICIAN Primary Care Unavailable JOSHUA HOOKER Attending Unavailable AMIRNENI, VACAEE ILIA Primary Care Unavail able [facility], [facility] Primary Care Unavail able AMIVIKTORIA MENDEZCAGUZMAN MORILLO Attending Unavail able AMIRPAIGE, [facility] Attending Unavail able AMIRNENI, [facility]IA Primary Care Unavail able JAMILA DURAN Attending Unavailable AMIRPAIGE, [facility]IA Primary Care Unavail able Allergies Allergy Classification Reported Allergen(s) Allergy Type Date of Onset Reaction(s) Facility Opioid Agonists (2 sources) Codeine; Translations: [CODEINE] Drug Allergy [address] [facility] (1 source) Codeine And Related Propensity to adverse reactions to drug [address] [place] [address] (3 sources) Codeine; Translations: [CODEINE] Drug Allergy 7 Rash [facility] Medications Current Medications Medication Drug Class(es) Dates [...] Date Time Vital Sign Value Performing Clinician [facility] 05-24-2023 11:04-0500 Body height 171.5 cm Rudi Ash MD Work Phone: [facility] 05-24-2023 11:04-0500 Body mass index (BMI) [Ratio] 38.79 kg/m2 Rudi Ash MD Work Phone: [facility] 05-24-2023 11:04-0500 Body temperature 98.1 [degF] Rudi Ash MD Work Phone: [facility] 05-24-2023 11:04-0500 Body weight 114.03 kg Rudi Ash MD Work Phone: [facility] 05-24-2023 11:04-0500 Diastolic blood pressure 72 mm[Hg] Rudi Ash MD Work Phone: [facility] 05-24-2023 11:04-0500 Heart rate 84 /min Rudi Ash MD Work Phone: [facility] 05-24-2023 11:04-0500 Respiratory rate 14 /min Rudi Ash MD Work Phone: [facility] 05-24-2023 11:04-0500 SaO2% (BldA) [Mass fraction] 97 % Rudi Ash MD Work Phone: [facility] 05-24-2023 11:04-0500 Systolic blood pressure 110 mm[Hg] Rudi Ash MD Work Phone: [facility] 12-13-2022 14:39-0400 Body height 171.5 cm Rudi Ash MD Work Phone: [facility] 12-13-2022 14:39-0400 Body mass index (BMI) [Ratio] 40.68 kg/m2 Rudi Ash MD Work Phone: [facility] 12-13-2022 14:39-0400 Body temperature 98.71 [degF] Rudi Ash MD Work Phone: [facility] 12-13-2022 14:39-0400 Body weight 119.57 kg Rudi Ash MD Work Phone: [facility] 12-13-2022 14:39-0400 Diastolic blood pressure 83 mm[Hg] Rudi Ash MD Work Phone: [facility] 12-13-2022 14:39-0400 Heart rate 78 /min Rudi Ash MD Work Phone: [facility] 12-13-2022 14:39-0400 Respiratory rate 18 /min Rudi Ash MD Work Phone: [facility] 12-13-2022 14:39-0400 SaO2% (BldA) [Mass fraction] 96 % Rudi Ash MD Work Phone: [facility] 12-13-2022 14:39-0400 Systolic blood pressure 124 mm[Hg] Rudi Ash MD Work Phone: [facility] 02-07-2022 14:01-0400 Diastolic blood pressure 71 mm[Hg] [facility] 02-07-2022 14:01-0400 Heart rate 70 /min [facility] 02-07-2022 14:01-0400 Respiratory rate 18 /min [facility] 02-07-2022 14:01-0400 SaO2% (BldA) [Mass fraction] 98 % [facility] 02-07-2022 14:01-0400 Systolic blood pressure 130 mm[Hg] [facility] 02-07-2022 10:51-0400 Body temperature 97.59 [degF] [facility] 10-22-2020 10:51-0400 Body height 172.7 cm Geetha Carranza [employer] Work Phone: [facility] 10-22-2020 10:51-0400 Body mass index (BMI) [Ratio] 33.45 kg/m2 Geetha Carranza [employer] Work Phone: [facility] 10-22-2020 10:51-0400 Body temperature 98.4 [degF] Geetha Carranza [employer] Work Phone: [facility] 10-22-2020 10:51-0400 Body weight 99.79 kg Geetha Carranza [employer] Work Phone: [facility] 10-22-2020 10:51-0400 Diastolic blood pressure 77 mm[Hg] Geetha Carranza [employer] Work Phone: [facility] 10-22-2020 10:51-0400 Heart rate 98 /min Geetha Carranza [employer] Work Phone: [facility] 10-22-2020 10:51-0400 Respiratory rate 18 /min Geetha Carranza [employer] Work Phone: [facility] 10-22-2020 10:51-0400 SaO2% (BldA) [Mass fraction] 97 % Geetha Carranza [employer] Work Phone: [facility] 10-22-2020 [id number] Systolic blood pressure 119 mm[Hg] Geetha Carranza CNP Work Phone: [facility] Encounters Encounter Date Encounter Type Care Provider Facility Start: 05-25-2023 ambulatory JAMILA DURAN [facility] Ambulatory Start: 05-24-2023 End: 05-24-2023 ambulatory RUDI ASH [facility] Ambulatory Start: 05-24-2023 End: 05-24-2023 Office outpatient visit 25 minutes Rudi Ash MD Work Phone: [facility] Procedures Date Procedure Procedure [...] 10-22-2020 COVID-19/INFLUENZA O RDER ALGORITHM Geetha Carranza [employer] Work Phone: Start: 10-22-2020 Sars-cov-2 detection by dna/rna Geetha Carranza [employer] Work Phone: Plan of Treatment Date Care Activity Detail Author Start: 09-12-2027 Tetanus vaccination Tetanus: Every 1 0yrs [facility] Start: 05-27-2024 End: 05-27-2024 Patient encounter procedure 05/27/2024 8:00 AM EST Office Visit [facility] [address] [place] [phone] Rudi Ash MD [address] [place] [address] [facility] Start: 11-25-2023 Influenza vaccination Sequenti al Influenza Vaccine (#1) [facility] Immunizations Immunization Date Immunization Notes Care Provider Fa cility 09-11-2017 tetanus toxoid, redu toro diphtheria toxoid, and acellular pertussis vaccine, adsorbed Geetha [employer] Work Phone: [facility] 01-07-2010 meningococcal polysa ccharide (groups A, C, Y and W-135) diphtheria toxoid conjugate vaccine (MCV4P) Geetha [employer] Work Phone: [facility] 01-07-2010 tetanus toxoid, redu toro diphtheria toxoid, and acellular pertussis vaccine, adsorbed Geetha [employer] Work Phone: [facility] 06-01-2000 diphtheria, tetanus toxoids and acellular pertussis vaccine, unspecified formulation Geetha [employer] Work Phone: [facility] 06-01-2000 measles, mumps and r ubella virus vaccine Geetha [employer] Work Phone: [facility] 06-01-2000 poliovirus vaccine, inactivated Geetha Conn [employer] Work Phone: [facility] 06-01-2000 varicella virus vaccine Patr icia Conn [employer] Work Phone: [facility] 01-19-1997 varicella virus vaccine Patr icia Conn [employer] Work Phone: [facility] 12-01-1996 measles, mumps and r ubella virus vaccine Geetha [employer] Work Phone: [facility] 12-01-1996 poliovirus vaccine, inactivated Geetha Conn [employer] Work Phone: [facility] 1995 diphtheria, tetanus toxoids and acellular pertussis vaccine, unspecified formulation Geetha [employer] Work Phone: [facility] 1995 haemophilus influenz ae type b conjugate and Hepatitis B vaccine Geetha Conn [employer] Work Phone: [facility] 1995 poliovirus vaccine, inactivated Geetha Conn [employer] Work Phone: [facility] 1995 diphtheria, tetanus toxoids and acellular pertussis vaccine, unspecified formulation Geetha Conn [employer] Work Phone: [facility] 1995 haemophilus influenz ae type b vaccine, PRP-T conjugate Geetha Conn [employer] Work Phone: [facility] 1995 poliovirus vaccine, inactivated Geetha Conn [employer] Work Phone: [facility] 1995 diphtheria, tetanus toxoids and acellular pertussis vaccine, unspecified formulation Geetha Conn [employer] Work Phone: [facility] 1995 haemophilus influenz ae type b vaccine, PRP-T conjugate Geetha Conn [employer] Work Phone: [facility] 1995 poliovirus vaccine, inactivated Geetha Conn [employer] Work Phone: [facility] 1995 hepatitis B vaccine, pediatric or pediatric/adolescent dosage Geetha Conn [employer] Work Phone: [facility] 1995 hepatitis B vaccine, pediatric or pediatric/adolescent dosage Geetha Conn [employer] Work Phone: [facility] Payers Date Payer Category Payer Unknown [facility] [id number] 2022-Present [address] [place] [address] [id number] 2018 Medicaid [facility] [employer] [id number] 2018-Present [id number] 2018 Medicaid [id number] 2018 Medicaid [facility] [employer] [id number] 2018-Present [phone] [address] [place] [address] [id number] 2018 Medicaid [id number] 2017 [facility] ARO12 [id number] 2014 Medicaid [id number] 1995 Unknown [id number] 1995 Unknown [id number] 1995 Unknown [id number] 1995 Unknown [id number] 1995 Unknown [id number] 1995 Unknown [id number] 1995 Unknown [id number] Social History Date Type Detail Facility Start: 03-30-2017 End: 10-22-2020 Tobacco smoking status [facility] Never smoker [facility] Start: 10-22-2020 End: 12-13-2022 Tobacco use and exposure Never used [facility] Start: 10-22-2020 End: 05-24-2023 Alcohol intake Current drinker of alcohol (finding) [facility] Start: 10-22-2020 Alcohol Comment occasionally [facility] Start: 1995 Sex Assigned At Not on file [facility] Start: 01-28-2022 End: 02-07-2022 Exposure to SARS-CoV-2 (event) Not sure [facility] Start: 02-07-2022 History SDOH Alcohol Comment [facility] Start: 12-13-2022 Tobacco smoking stat us NHIS Ex-smoker [facility] History of tobacco use Current smoker [facility] History of tobacco use Cigarette Smoker [facility] Start: 12-11-2022 End: 04-27-2023 History of Social function [facility] Start: 12-11-2022 End: 04-27-2023 Tobacco use panel [facility] Start: 10-22-2020 Gender identity Identifies as female gender (finding) [facility] Start: 12-11-2022 Sexual orientation Homosexual (findi ng) [facility] History of Present illness Narrative 05-24-2023 Rudi Ash MD - 05/24/2023 11:09 AM EST Note Date & Type Note Facility 05-24-2023 History of Presen t illness Narrative Images from the original note were not included. [facility] 1995 [id number] HPI: Patient was here today complaining of [...] the office or send them through the [employer] so that we can complete them and [...] this chart may have been created with ROI² voice recognition software. Occasional wrong-word or sound-like substitutions may have occurred due to inherent limitations of the voice recognition software. Please read the chart carefully and recognize, using context, where the substitutions have occurred. documented in this encounter [facility] History of Present illness Narrative 12-13-2022 Rudi Ash MD - 12/13/2022 6:30 PM EDT Note Date & Type Note Facility 12-13-2022 History of Presen t illness Narrative Images from the original note were not included. [facility] 1995 [id number] HPI: Patient was here today to establish [...] this chart may have been created with [employer] voice recognition software. Occasional wrong-word or sound-like substitutions may have occurred due to inherent limitations of the voice recognition software. Please read the chart carefully and recognize, using context, where the substitutions have occurred. documented in this encounter [facility] Discharge instructions 02-07-2022 Discharge InstructionsAttachments Note Date & Type Note Facility 02-07-2022 Hospital Discharg e instructions Kayla Warner PA-C - 02/07/2022 1:42 PM EDT If your pain gets worse or moves to the left side please return for reevaluation. The following attachments cannot be sent through Care Everywhere.Ovarian Cyst: Functional (Sinhala)documented in this encounter [facility] [employer] [facility] Instructions 10-22-2020 Patient Instructions Note Date [...] specific medicine your doctor prescribes. Take an ctjs-ixe-rkdhlyf pain medicine, such as acetaminophen (Tylenol), ibuprofen [...] Log into your personal health record on [email or web address] and enter [email or web address] in the Education box to learn more about Viral Respiratory Infection: Care Instructions. Current as of: March 22, 2020 Content Version: 12.8 [employer]. Care instructions adapted under license by your healthcare professional. If you have questions about a medical condition or this instruction, always ask your healthcare professional. [employer] disclaims any warranty or liability for your use of this information. Thank you for choosing [facility] for your health care needs today. Follow up if no improvement in 3 to 5 days. documented in this encounter [facility] History of Present illness Narrative 10-22-2020 Geetha Carranza CNP - 10/22/2020 10:50 AM EDT Note Date & Type Note Facility 10-22-2020 History of Presen t illness Narrative Images from the original note were not included. ambrose Patient Name: [facility] Location: [place] [facility] [address] [place] [id number] Date Of : Date Of Visit: 1995 10/22/2020 MRN# Provider: [id number] Geetha Carranza CNP Chief Complaint Patient presents [...] specific medicine your doctor prescribes. Take an odgj-yqs-qkaazun pain medicine, such as acetaminophen (Tylenol), ibuprofen [...] Log into your personal health record on [email or web address] and enter [email or web address] in the Education box to learn more about Viral Respiratory Infection: Care Instructions. Current as of: March 22, 2020 Content Version: 12.8 [employer]hands. Care instructions adapted under license by your healthcare professional. If you have questions about a medical condition or this instruction, always ask your healthcare professional. [employer] disclaims any warranty or liability for your use of this information. Thank you for choosing [facility] for your health care needs today. Follow up if no improvement in 3 to 5 days. documented in this encounter [facility] Evaluation note Note Date & Type Note Facility documented in this encounter [facility] Evaluation note Note Date & Type Note Facility documented in this encounter [facility] Evaluation note Note Date & Type Note Facility documented in this encounter [facility] Evaluation note Note Date & Type Note Facility documented in this encounter [facility] Summary Purpose Family History No Family History Records FoundNo Family History Records FoundNo Family History Records FoundNo Family History Records FoundNo Family History Records FoundNo Family History Records FoundNo Family History Records Found Advance Directives No Advanced Directives Records FoundDocuments on File Type Date 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 Advance Directives and Living Will Reason for Referral Specialty Diagnoses / Procedures Referred By Contac t Referred To Contact Procedures US TRANSVAGINAL WITH DOPPLER US PELVIC W TRANSVAGINAL Kayla Warner PA-C [address] [place] [id number] Referral ID Status Reason Start Date Expiration Date Visits Re quested Visits Authorized [id number] Closed 02/07/2022 03/04/2023 1 1 Specialty Diagnoses / Procedures Referred By Contac t Referred To Contact Radiology Diagnoses Epigastric abdominal pain Nausea and vomiting, unspecified vomiting type Procedures NM Hepatobiliary With Ejection Fraction Rudi Ash MD [address] [place] [address] Referral ID Status Reason Start Date Expiration Date V isits Requested Visits Authorized [id number] New Request 12/14/2022 12/14/2023 4 4 Additional Source Comments INFORMATION SOURCE (unrecogn ized section and content) DATE CREATED AUTHOR AUTHOR'S ORGANIZ ATION 11/30/2017 [facility] DATE CREATED AUTHOR AUTHOR'S ORGANIZ ATION 10/25/2020 [facility] Urge nt [facility] DATE CREATED AUTHOR AUTHOR'S ORGANIZ ATION 03/08/2022 [facility] DATE CREATED AUTHOR AUTHOR'S ORGANIZ ATION 01/05/2023 [facility] DATE CREATED AUTHOR AUTHOR'S ORGANIZ ATION 05/25/2023 [facility] DATE CREATED AUTHOR AUTHOR'S ORGANIZ ATION 05/26/2023 [facility] Ambu latory Reason for Visit (unrecogniz ed section and content) Reason Comments Pelvic Pain To ED with c/o ligh tening crotch since this morning. Patient states pain comes and goes. Reason Comments Establish Care Follow-up ER F/U upper abdomin al pain, nausea and vomiting Reason Comments COVID infection Follow-up Follow-up on other c hronic symptoms Care Teams (unrecognized sec tion and content) Financial Sales Advisor Relationship Specialty Start Date End Date Rudi Ash MD [address] [phone] PCP - General Internal Medicine 12/13/22 FOR [...] BE BASED ON THE PRIMARY CLINICAL RECORDS. [employer] provides no warranty or guarantee of the accuracy or completeness of information in this document.
[2023-06-22 11:25] LABS: Progesterone Level 1.21 ng/mL (See Comment)
== END | disposition home or self-care (01) ==
PROVIDERS: Referring Provider Nurse Practitioner Women's Health; Visit Provider Nurse Practitioner Women's Health
DX: N91.4 Secondary oligomenorrhea (principal)
CPT/HCPCS: 36415; 84144